=== PATIENT | male | born 1985 | race Two or more races ===

== ENCOUNTER 2024-05-09 10:30 | Emergency (ER) | payer OTHER, SELFPAY ==
--- NOTE | 2024-05-09 11:16 | ED.GENMED ---
History of Present Illness
<Tabatha Bowen PA-C - Last Filed: 05/09/24 19:07>
General
Chief Complaint: Abdominal Pain
Source: patient
Exam Limitations: none
Time Seen by Provider: 05/09/24 10:54
Nursing documentation reviewed up to this point in time: agreed with
History of Present Illness
History of Present Illness:
38-year-old male with no medical problems presents with mild left lower quadrant pain that started 2 days ago and felt like a cramp. It was coming days. This morning at 845 when he woke up it was much more intense, 6 or 7 out of 10. Patient did
have a bowel movement which felt normal. He had no relief of pain with the bowel movement. He ended up taking 2 Advil at 9:45 AM and he does feel improvement. Patient says the pain still comes and goes and radiates into his left inguinal region
and his scrotum. It does not radiate to his back. He has no urinary symptoms, no history of kidney stones or diverticulitis. He has never had a colonoscopy. He has had a little bit of intermittent nausea with the pain as well. No fevers or
chills. No previous surgeries on his abdomen
Past History
<Tabatha Bowen PA-C - Last Filed: 05/09/24 19:07>
Past History
ED Past Medical History: None
ED Past Surgical History: None
Social History
Tobacco: Non-smoker
Alcohol: None
Drug: None
Personal:
Living: with family
Review of Systems
<Tabatha Bowen PA-C - Last Filed: 05/09/24 19:07>
Review of Systems
Allergies reviewed?: Yes
All Other Systems: Not applicable
Phy Exam
<DANIAL Hampton Last Filed: 05/09/24 19:07>
Physical Exam
Physical Exam:
GENERAL: Alert, comfortable
Neck: supple
CARDIAC: Regular rate and rhythm .
LUNGS: Clear breath sounds bilaterally, no acute respiratory distress, no wheezes/rales/rhonchi
ABDOMEN: Soft, normal bowel sounds, nondistended, mild left lower quadrant tenderness, no guarding, no rebound, neg mendosa's
: normal inspection of region
nontender testicles b/l
no rashes
NEUROLOGICAL: Alert and oriented, no focal neuro deficits
SKIN: Warm and dry, skin intact slightly pale.
PSYCH: Normal and appropriate interaction.
Course
<Tabatha Bowen PA-C - Last Filed: 05/09/24 19:07>
Orders/Labs/Results
Orders:
Orders
05/09/24 11:15
0.9% Sodium Chloride 1000 ml [Nss] 1,000 ml IV BOLUS
Ketorolac [Toradol] 15 mg IV NOW STA
05/09/24 12:01
Complete Blood Count/With Diff Urgent
Comprehensive Metabolic Panel Urgent
Lipase Urgent
Urinalysis Reflex To Culture Urgent
Date Specimen was Collected: 05/09/24
Time Specimen was Collected: 11:54
Urine Microscopic Reflex Cult Urgent
Urine Culture Urgent
LUANNE Source: U
Specimen Description:
Obtained by: Random
Date Specimen was Collected: 05/09/24
Time Specimen was Collected: 11:54
05/09/24 12:20
CT Abd/pel Without Iv Or Oral Urgent
Comment:
Reason For Exam: left sided pain, suspect kidney stone
05/09/24 14:02
Tamsulosin [Flomax] 0.4 mg PO NOW STA
Abnormal Lab Results
05/09/24
12:01
WBC 12.6 H 10^3/uL
(4.8-10.8)
MPV 11.0 H fL
(7.4-10.4)
Abs Immat Gran (auto) 0.1 H 10^3/uL
(0-0.05)
Absolute Neuts (auto) 11.0 H 10^3/uL
(1.4-6.5)
Absolute Lymphs (auto) 0.9 L 10^3/uL
(1.2-3.4)
Neutrophils % 87.5 H %
(42.2-75.2)
Lymphocytes % 6.9 L %
(20.5-51.1)
Glucose 115 H mg/dl
(70-99)
Total Bilirubin 1.8 H mg/dl
(0.2-1.3)
ALT 63 H U/L
(0-50)
Urine Ketones 1+ A
(Negative)
Ur Occult Blood Reflex 4+ A
(Negative)
Urine Bilirubin 1+ A
(Negative)
Leukocyte Esterase Rfl 1+ A
(Negative)
Urine RBC >100 A /HPF
(0-2)
Urine Albumin (Reflex) 1+ A
(Neg - Trace)
05/09/24 12:01
05/09/24 12:01
Vital Signs
Initial and Last Documented VS:
Initial Vital Signs
Temp Pulse Resp Pulse Ox
98.0 F 60 16 98
05/09/24 10:31 05/09/24 10:31 05/09/24 10:31 05/09/24 10:31
Last Documented Vital Signs
Temp Pulse Resp BP Pulse Ox
98.0 F 80 16 124/82 97
05/09/24 10:31 05/09/24 14:59 05/09/24 14:59 05/09/24 14:59 05/09/24 14:59
<Naz Farrell MD - Last Filed: 05/09/24 12:35>
Orders/Labs/Results
Orders:
Orders
05/09/24 11:15
0.9% Sodium Chloride 1000 ml [Nss] 1,000 ml IV BOLUS
Ketorolac [Toradol] 15 mg IV NOW STA
05/09/24 12:01
Complete Blood Count/With Diff Urgent
Comprehensive Metabolic Panel Urgent
Lipase Urgent
Urinalysis Reflex To Culture Urgent
Date Specimen was Collected: 05/09/24
Time Specimen was Collected: 11:54
Urine Microscopic Reflex Cult Urgent
Urine Culture Urgent
LUANNE Source: U
Specimen Description:
Obtained by: Random
Date Specimen was Collected: 05/09/24
Time Specimen was Collected: 11:54
05/09/24 12:20
CT Abd/pel Without Iv Or Oral Urgent
Comment:
Reason For Exam: left sided pain, suspect kidney stone
05/09/24 14:02
Tamsulosin [Flomax] 0.4 mg PO NOW STA
Abnormal Lab Results
05/09/24
12:01
WBC 12.6 H 10^3/uL
(4.8-10.8)
MPV 11.0 H fL
(7.4-10.4)
Abs Immat Gran (auto) 0.1 H 10^3/uL
(0-0.05)
Absolute Neuts (auto) 11.0 H 10^3/uL
(1.4-6.5)
Absolute Lymphs (auto) 0.9 L 10^3/uL
(1.2-3.4)
Neutrophils % 87.5 H %
(42.2-75.2)
Lymphocytes % 6.9 L %
(20.5-51.1)
Glucose 115 H mg/dl
(70-99)
Total Bilirubin 1.8 H mg/dl
(0.2-1.3)
ALT 63 H U/L
(0-50)
Urine Ketones 1+ A
(Negative)
Ur Occult Blood Reflex 4+ A
(Negative)
Urine Bilirubin 1+ A
(Negative)
Leukocyte Esterase Rfl 1+ A
(Negative)
Urine RBC >100 A /HPF
(0-2)
Urine Albumin (Reflex) 1+ A
(Neg - Trace)
05/09/24 12:01
05/09/24 12:01
Vital Signs
Initial and Last Documented VS:
Initial Vital Signs
Temp Pulse Resp Pulse Ox
98.0 F 60 16 98
05/09/24 10:31 05/09/24 10:31 05/09/24 10:31 05/09/24 10:31
Last Documented Vital Signs
Temp Pulse Resp BP Pulse Ox
98.0 F 80 16 124/82 97
05/09/24 10:31 05/09/24 14:59 05/09/24 14:59 05/09/24 14:59 05/09/24 14:59
<Tabatha Bowen PA-C - Last Filed: 05/09/24 19:07>
MDM/Problems Addressed
Differential Diagnosis Includes:
kidney stone, divertic
MDM/Problems Addressed:
38-year-old male with 2 days of very mild cramping in his left lower quadrant but then much worse symptoms today when he woke up. Radiates to his scrotum. He is not having any back pain or urinary symptoms. Minimal nausea with the onset of the
waves of pain. On exam he had no focal abdominal tenderness, normal testicular exam. Patient's UA had large blood, no signs of infection. He had mild leukocytosis, normal renal function and a CAT scan that showed a proximal left 1 mm UPJ stone
without any hydro-. Patient was given Flomax, his pain was controlled with Toradol. DC home with Motrin, Tylenol, Flomax
Follow-up with urology encouraged, strainer given for urination
<Tabatha Bowen PA-C - Last Filed: 05/09/24 19:07>
*Critical Care Note
Total Time (30-74mins, 75-104mins- exclusive of procedures): Not Applicable
ED Attending Note
<Tabatha Bowen PA-C - Last Filed: 05/09/24 19:07>
-
Portions of this chart may have been created with voice recognition software.� Occasional wrong word or��sound alike� substitutions may have occurred due to the inherent limitations of voice recognition software.
<Naz Farrell MD - Last Filed: 05/09/24 12:35>
ED Attending Note
Patient seen and examined by attending physician: Yes
I performed the substantive portion of visit, reviewed & personally made and approve the management plan that is documented in note by myself or RENETTA.: Yes
ED Attending Note:
Patient appears nontoxic and well. States his pain is minimal after getting pain medication. Abdomen is completely soft and nontender throughout. Urine shows greater than 100 red blood cells, and given his left lower abdominal cramping, it is
very possible he is experiencing renal colic.
Discharge Plan
Departure
Patient Disposition: Home (Routine Discharge)
Date of Disposition: 05/09/24
Time of Disposition: 14:12
Patient with high blood pressure during this ER visit?: No
Condition: Fair
Covid-19: Not Applicable
Discharge Problem:
Kidney stone
Instructions: Kidney Stone, Adult ED
Prescriptions:
New
hydrocodone-acetaminophen 5-325 mg tablet
1 tab PO Q8H PRN (Reason: Pain) Qty: 9 0RF
tamsulosin [Flomax] 0.4 mg capsule
0.4 mg PO DAILY Qty: 20 0RF
ibuprofen 600 mg tablet
600 mg PO Q8H PRN (Reason: Pain) Qty: 20 0RF
Referrals:
Nigel Grover MD [Active] - Follow up in 1 week
David Neves MD [Family Provider] - Follow up in 2-3 days
Activity Restrictions/Additional Instructions:
KEEP STAYING HYDRATED
TAKE FLOMAX 0.4 MG ONCE A DAY UNTIL YOU PASS THE STONE
URINATE THROUGH THE STRAINER EACH TIME YOU PEE
TAKE TYLENOL 2 EXTRA STRENGTH TABS 2 TIMES A DAY FOR PAIN
mOTRIN 600 MG EVERY 8 HOURS WITH FOOD 2-3 TIMES A DAY NEEDED
IF PAIN IS SEVERE YOU CAN TRY vicodin EVERY 8 HOURS NEEDED, THIS IS A NARCOTIC AND YOU CANNOT DRIVE OR DRINK ON THIS MEDICATION.
STOOL SOFTENER IF YOU TAKE THIS
RETURN FOR: SEVERE PAIN, VOMITING, FEVER, NOT URINATING OR ANY CONCERNS.
OTHERWISE FOLLOW UP WITH YOUR UROLOGIST
Interventions
Interventions:
*Risk Screen - Suicide Last Done: 05/09/24 10:31
*General Assessment Last Done: 05/09/24 10:31
*Neglect/Abuse Screening Last Done: 05/09/24 10:31
ED- Fall Risk Assessment Last Done: 05/09/24 11:47
*ED COVID-19 Vaccine History Last Done: 05/09/24 10:31
*Nursing Disposition Last Done: 05/09/24 14:59
SK-Gyfhjf-Iwrspvwlbm Assessment Last Done: 05/09/24 11:47
Discharge Date and Time
Discharge Date/Time: 05/09/24 14:59
Print Language: [email or web address]
[2024-05-09 11:47] VITALS: BMI 28.2
[2024-05-09 11:49] VITALS: BP 107/79
[2024-05-09 12:00] VITALS: BP 108/83
[2024-05-09] MEDS: TORADOL 15 MG IV (12:02)
[2024-05-09] MEDS: NSS 1000 IV (12:02)
[2024-05-09 12:15] LABS: Urine Albumin 1+ (Neg - Trace); Urine Bilirubin 1+ (Negative); Urine Character Very Cloudy (Clear); Urine Color Brown; Urine Glucose Negative (Negative); Urine Ketone 1+ (Negative); Urine Leukocyte 1+ (Negative); Urine Nitrite Negative (Negative); Urine Occult Blood 4+ (Negative); Urine Specific Gravity 1.015 (<1.030); Urine Urobilinogen Negative (Neg - 1+)
[2024-05-09 12:17] LABS: % Basophils 0.3 % (0-2); % Eosinophils 0.6 % (0-6); % Immature Granulocytes 0.4 % (0-0.5); % Lymphocytes 6.9 % (20.5-51.1); % Monocytes 4.3 % (1.7-9.3); % Neutrophils 87.5 % (42.2-75.2); Absolute Eosinophils 0.1 10^3/uL (0-0.7); Absolute Immature Granulocytes 0.1 10^3/uL (0-0.05); Absolute Lymphocytes 0.9 10^3/uL (1.2-3.4); Absolute Monocytes 0.5 10^3/uL (0.1-0.6); Mean Corp Hgb Conc. 35.6 g/dL (33.0-37.0); Mean Corpuscular Hgb 28.5 pg (27.0-31.0); Mean Corpuscular Volume 80.2 fL (80.0-94.0); Nucleated Red Blood Cells % 0 % (-); Platelet Count 251 10^3/uL (130-400); Red Blood Cell Count 5.61 10^6/uL (4.70-6.10); Red Cell Dist. Width 13.1 % (11.5-14.5); White Blood Cell Count 12.6 10^3/uL (4.8-10.8)
[2024-05-09 12:24] LABS: Urine Red Blood Cell >100 /HPF (0-2); Urine White Cell 0-2 /HPF (0-5)
[2024-05-09 12:31] LABS: ALT (SGPT) 63 U/L (0-50); AST (SGOT) 34 U/L (17-59); Albumin 4.9 g/dl (3.5-5.0); Alkaline Phosphatase 70 U/L (38-126); Blood Urea Nitrogen 18 mg/dl (9-20); Calcium 10.2 mg/dl (8.4-10.2); Carbon Dioxide 29 mmol/L (22-30); Chloride 101 mmol/L (98-107); Estimated Creatinine Clearance 66 ml/min; Glucose 115 mg/dl (70-99); Lipase 121 U/L (23-300); Potassium 5.1 mmol/L (3.5-5.1); Sodium 138 mmol/L (135-145); Total Bilirubin 1.8 mg/dl (0.2-1.3); Total Protein 7.5 g/dl (6.3-8.2); eGFR > 60.00
[2024-05-09 13:00] VITALS: BP 96/70
[2024-05-09 14:49] VITALS: BP 124/82
[2024-05-09] MEDS: FLOMAX 0.4 MG PO (14:53)
[2024-05-09 14:59] VITALS: BP 124/82
== END 2024-05-09 14:59 | disposition home or self-care (01) ==
LOC: EMR 10:30
PROVIDERS: Physician Assistant; EMERGENCY PHYSICIAN Emergency Medicine; FAMILY PHYSICIAN Family Medicine
DX: N20.2 Calculus of kidney with calculus of ureter (principal); R11.0 Nausea; Z88.5 Allergy status to narcotic agent
CPT/HCPCS: 99284; 96374; 96361; 74176; 80053; 81003; 81015; 83690; 85025; 87086